=== PATIENT | female | born 1975 | race Hispanic/Latino ===

== ENCOUNTER 2019-12-18 09:20 | Observation (INO) | payer BC ==
[2019-12-16 13:16] LABS: BASOPHILS % (AUTO) 0.8 % (0.0-5.0); EOSINOPHILS % (AUTO) 1.6 % (0.0-8.0); HEMATOCRIT 39.6 % (36-48); LYMPHOCYTES % (AUTO) 26.7 % (21.0-51.0); MEAN CORPUSCULAR HEMOGLOBIN 27.9 pg (27.0-33.0); MEAN CORPUSCULAR HGB CONC 33.1 g/dL (32.0-36.0); MEAN CORPUSCULAR VOLUME 84.3 fL (79-99); NEUTROPHILS % (AUTO) 63.8 % (40.0-77.0); PLATELET COUNT (AUTO) 223 K/uL (130-400); WHITE BLOOD COUNT (AUTO) 7.4 K/uL (4.8-10.8)
[2019-12-16 13:20] VITALS: BP 125/69
[~2019-12-18] VITALS: Ht 160 cm; Wt 74.2 kg
[2019-12-18] VITALS (22 sets, daily range): BP systolic 98–122; BP diastolic 48–74
[2019-12-18] MEDS: CEFAZOLIN SODIUM 1 GM VIAL IVP SCH ×2 (06:00→11:05)
[~2019-12-18 09:20] MED LIST: ACET-2743 PO; NAPR220T57 PO; PHENAZOPYRIDINE HCL 200 MG TABLET PO SCH
[2019-12-18] MEDS ORDERED: LACTATED RINGERS 1000ML 1,000 ML IV ONE (10:25)
[2019-12-18] MEDS: METRONIDAZOLE 500MG/100ML BAG 100 ML IVPB SCH ×2 (10:45→11:18)
[2019-12-18] MEDS ORDERED: MIDAZOLAM HCL 1 MG/ML 2ML VIAL ONE (11:03)
[2019-12-18] MEDS ORDERED: PROPOFOL 10 MG/ML 20ML VIAL IV ONE (11:03)
[2019-12-18] MEDS ORDERED: SUCCINYLCHOLINE 200MG/10ML SYR ONE (11:03)
[2019-12-18] MEDS ORDERED: LIDOCAINE PF 2% 5ML ABBOJECT ONE ×2 (11:03→12:43)
[2019-12-18] MEDS ORDERED: ROCURONIUM 10MG/1ML SYR 10 MG/ML ML ONE (11:03)
[2019-12-18] MEDS ORDERED: FENTANYL CITRATE PF 50 MCG/1 ML 5ML AMP IV ONE (11:04)
[2019-12-18] MEDS ORDERED: BUPIVACAINE/EPI/PF 0.5% 30ML VIAL IJ ONE (11:09)
[2019-12-18] MEDS ORDERED: PHENYLEPHRINE HCL 10 MG/ML 1ML VIAL IV ONE (12:09)
[2019-12-18] MEDS ORDERED: SODIUM CHLORIDE 0.9% 10 ML VIAL ONE (12:09)
[2019-12-18] MEDS ORDERED: GLYCOPYRROLATE 1 MG/5 ML SYRINGE ONE (12:41)
[2019-12-18] MEDS ORDERED: NEOSTIGMINE 5MG/5ML SYR IV ONE (12:41)
[2019-12-18] MEDS ORDERED: ONDANSETRON HCL 4 MG/2 ML VIAL ONE (12:43)
[2019-12-18] MEDS ORDERED: KETOROLAC TROMETHAMINE 30MG/ML ONE (12:43)
[2019-12-18] MEDS ORDERED: MEPERIDINE-PF 25 MG/ML SYG ONE ×2 (13:08→13:20)
--- NOTE | 2019-12-18 14:00 | NUR ---
PATIENT ARRIVED TO UNIT VIA BED FROM PACU BY KAYLAN HART. PATIENT ORIENTED TO ROOM. TEDS AND SCDS APPLIED TO BILATERAL BILATERAL EXTREMITIES. MARTIN CATHETER DRAINING TO BEDSIDE. POS DISCUSSED WITH PATIENT. NO PAIN AT THIS TIME. CALL LIGHT LEFT IN REACH.
[2019-12-18] MEDS ORDERED: ONDANSETRON HCL 4 MG/2 ML VIAL IVP SCH (14:30)
[2019-12-18] MEDS ORDERED: MORPHINE SULFATE 10 MG/ML 1ML VIAL IM PRN (14:30)
--- NOTE | 2019-12-18 15:00 | NUR ---
MD DR. TAN CALLED AND WAS UPDATED ON PATIENT'S STATUS. INFORMED MD THAT PATIENT WAS RECEIVED AT 1400 AND WAS NOT UP IN CHAIR YET SINCE PATIENT IS GROGGY. NO NEW ORDERS RECEIVED.
[2019-12-18] MEDS: HYDROCODONE/ACETAMINOPHEN 5/325 MG TAB PO PRN ×2 (15:10→23:33)
[2019-12-18 15:29] LABS: MEAN CORPUSCULAR HGB CONC 33.8 g/dL (32.0-36.0); MEAN CORPUSCULAR VOLUME 82.9 fL (79-99); PLATELET COUNT (AUTO) 187 K/uL (130-400); RED CELL DISTRIBUTION WIDTH 12.9 % (11.0-15.5); WHITE BLOOD COUNT (AUTO) 14.2 K/uL (4.8-10.8)
--- NOTE | 2019-12-18 16:10 | NUR ---
ASSISTED PATIENT OOB TO CHAIR AT BEDSIDE. NO DIZZINESS REPORTED, PATIENT AMBULATED TO CHAIR WITHOUT PROBLEMS. APPLE JUICE AND APPLE SAUCE GIVEN. ADVISED PATIENT TO AMBULATE IN HALLWAY X2. PATIENT VOICED UNDERSTANDING.
--- NOTE | 2019-12-18 16:50 | NUR ---
SPOKE WITH DR. TAN TO INFORM THAT PATIENT C/O DIZZINESS WHILE UP IN CHAIR. NEW ORDERS RECEIVED TO INSTEAD BOLUS 1L OF NS, DISCONTINUE MARTIN CATHETER AND VAGINAL PACKING. PATIENT TO TRY TO VOID 1 HOUR AFTER MARTIN CATHETER IS REMOVED
--- NOTE | 2019-12-18 17:25 | NUR ---
MARTIN CATHETER AND VAGINAL PACKING REMOVED AT THIS TIME. BOLUS OF NS STARTED.
--- NOTE | 2019-12-18 18:38 | NUR ---
MD SPOKE WITH DR. TAN INFORMED PATIENT VOIDED APPROXIMATELY 150ML AFTER BOLUS OF NS. INFORMED THAT PATIENT WOULD LIKE TO STAY OVER NIGHT. NEW ORDERS RECEIVED. PATIENT TO BE DISCHARGED IN AM.
[2019-12-18] MEDS: SODIUM CHLORIDE 0.9% 1000ML 1,000 ML IV SCH (18:52)
[2019-12-18] MEDS: KETOROLAC TROMETHAMINE 30MG/ML IV SCH (20:19)
[2019-12-18] MEDS ORDERED: ONDANSETRON HCL 4 MG/2 ML VIAL IVP PRN (20:30)
[2019-12-18] MEDS ORDERED: ENOXAPARIN SODIUM 30 MG/0.3 ML SQ SCH (21:00)
[2019-12-19] MEDS: SODIUM CHLORIDE 0.9% 1000ML 1,000 ML IV SCH (01:15)
[2019-12-19 03:50] VITALS: BP 120/79
[2019-12-19] MEDS: KETOROLAC TROMETHAMINE 30MG/ML IV SCH (04:50)
--- NOTE | 2019-12-19 05:55 | NUR ---
Discharges; Discharges instruction given advice to call clinic for follow up check up with Dr. Kaiser. and patient both verbalizes understanding.
--- NOTE | 2019-12-19 06:09 | NUR ---
Discharges; Patient discharges home on stable condition accompanied by via wheelchair wheeled by Bronwyn Charles CNA. Patient and out of the facility in their Private Car.
== END 2019-12-19 06:09 | disposition home or self-care (01) ==
LOC: DAH 09:20 → WSH 14:00 → DAH 14:18
PROVIDERS: ADMIT Obstetrics & Gynecology; ATTEND Obstetrics & Gynecology
DX: N39.3 Stress incontinence (female) (male) (principal); N92.0 Excessive and frequent menstruation with regular cycle; N81.5 Vaginal enterocele
CPT/HCPCS: 36415 ×2; 57288; 58270; 84703; 85025; 85027; 86850; 86900; 86901; 96365; 96372; 96375; 96376; A4215; A4221; A4222; A4223; A4344; A4351; A4510; A4600; A4663; A6260; G0378 ×12; J0330; J0690; J1650 ×2; J1885 ×3; J2001 ×2; J2175 ×2; J2250; J2370; J2405; J2704; J2710; J3010; J3490 ×3; J7030 ×2; J7120